=== PATIENT | male | born 1950 | race Caucasian/White ===

== ENCOUNTER 2022-12-06 08:02 | Emergency (ER) | payer MEDICARE, BC, SELFPAY ==
--- NOTE | ~2022-12-06 | CT_ITS ---
Noncontrast CT scan of the cervical spine Technique: Multiple contiguous axial [address] images of the cervical spine were obtained and rec onstructed in 2D sagittal and coronal planes on the acquisition scanner. Dose reduction technique was used on this scan by utilizing automated exposure control, adjustment of the mA and/or kV according to patient size. The dose-length product (DLP) was 456.75 mGy-cm. Clinical History: Pain Findings: No fractures or dislocations. There is mild reversal of the normal cervical lordosis. Ther e is advanced degenerative disc narrowing at C6-C7. There is moderate to advanced degenerative disc n arrowing at C5-C6. There is uncovertebral degenerative change at these levels. No prevertebral soft t issue swelling. Impression: No fracture or subluxation of the cervical spine. Mild degenerative change, as above. Reviewed, dictated and finalized at [facility]. Impression: No fracture or subluxation of the cervical spine. Mild degenerative change, as above.
--- NOTE | ~2022-12-06 | CT_ITS ---
Non-contrast Head CT History: Head injury Technique: Axial non-contrast imaging of the brain was performed. Dose reduction technique was used on this scan by utilizing automated exposure control and iterative reconstruction technique. The dose -length product (DLP) was 681.00 mGy-cm. Findings: There is no evidence of intracranial hemorrhage, mass lesion, or acute infarct. Brain par enchyma appears normal. The ventricles and subarachnoid spaces are normal in size. The calvarium ap pears normal. The visualized paranasal sinuses and mastoid air cells are clear. Impression: No significant abnormality seen. Reviewed, dictated and finalized at location . Impression: No significant abnormality seen.
[2022-12-06 08:10] VITALS: BP 141/55; PULSE 58; RESP 18; O2SAT 100
[2022-12-06 08:20] VITALS: BP 141/55; TEMP 36.8; O2SAT 100
--- NOTE | 2022-12-06 08:31 | ED.HEATRA ---
HPI - Head Injury General Chief complaint: Head Injury Stated complaint: HEAD INJURY 5 DAYS AGO Time Seen by Provider: 12/06/22 08:06 Source: patient and RN notes reviewed Mode of arrival: ambulatory Limitations: no limitations History of Present Illness HPI Narrative: This is 72 year old male with history of hyperlipidemia, chronic neck pain and heart disease who presents for evaluation of head injury. He states on he accidentally hit top of his head on corner of a cabinet. He states he leaned over and he hit cabinet when he stood back up. He states he saw stars and had bleeding from a wound. He denies LOC, nausea, vomiting. He states he has had a frontal headache and neck pain since . He has been taking tylenol and ibuprofen for his pain. He reports he has neck pain that he gets pain injections done for and it seems to have been exacerbated by this injury. He denies focal weakness, numbness or tingling. Related Data Allergies Allergy/AdvReac Type Severity Reaction Status Date / Time Sulfa (Sulfonamide Allergy Mild Unknown Verified 12/06/22 08:38 Antibiotics) Review of Systems Constitutional: Constitutional: Denies weakness Cardiovascular: Cardiovascular: Denies syncope, Denies rapid heart rate, Denies irregular heart rhythm, Denies leg edema and Denies dyspnea Respiratory: Respiratory: Denies chest congestion, Denies hemoptysis, Denies excessive phlegm production and Denies dyspnea Gastrointestinal: Gastrointestinal: Denies abdominal pain, Denies hematochezia, Denies diarrhea and Denies vomiting Genitourinary: Genitourinary: Denies hematuria, Denies dysuria, Denies penile discharge and Denies testicular pain Musculoskeletal: Musculoskeletal: Reports myalgias, Denies joint swelling, Denies loss of height and Denies muscle weakness Neurologic: Denies syncope, Reports headache(s), Denies focal weakness and Denies weakness PMFSH Past Medical History Medical History (Updated 12/06/22 @ 18:40 by Jennifer Mon MD) Heart disease Hyperlipidemia Proton pump inhibitor-responsive eosinophilic esophagitis Surgical History Surgical History (Updated 12/06/22 @ 18:40 by Jennifer Mon MD) No pertinent past surgical history Social History Social History (Updated 12/06/22 @ 08:33 by Jennifer Mon MD) Smoking status: Never smoker Exam Const: General: no acute distress and alert Nutritional Appearance: well nourished Orientation/consciousness: patient oriented x3 HENMT: Ears: external ears normal Face/Nose/Sinus: Normal external nose present Face and sinus: normal facial exam Mouth: Yes Normal oral and palatal mucosa present, Yes lip normal and Yes moist mucous membranes Throat: posterior oropharynx normal and uvula midline Other: small superfical wound right forehead at hairline Eyes: Conjunctivae: conjunctivae normal Pupils: Equal, round and reactive pupils present EOM: EOMs intact bilaterally Chest: Chest palpation & inspection: normal inspection of the chest Resp: Effort & Inspection: normal respiratory effort Auscultation: clear to auscultation bilaterally Cardio: Rate: regular rate Rhythm: regular rhythm Heart sounds: no murmurs GI: GI Palp: Yes Soft to palpation, No Tenderness to palpation present (GI), No Guarding due to palpation present (GI) and No Rigid due to palpation Auscultation: normal bowel sounds Skin: General skin exam: normal color Rashes: no rashes Wounds: wounds noted (right forehead) Neuro: General: patient oriented x3 and moves all extremities Cranial nerves: Yes CN's II-XII intact bilaterally Speech: normal speech Gait exam (Neuro): Normal gait present Extrem: General: normal to inspection Psych: Mental Status: mental status grossly normal Affect: normal affect Attitude: cooperative Course Reevaluation(s) Reevaluation #1: I have discussed with patient that CT did not show any acute fracture. I discussed discharge plan and he is
[2022-12-06 09:47] VITALS: BP 121/74; PULSE 51; RESP 18; O2SAT 96
== END 2022-12-06 09:48 | disposition home or self-care (01) ==
PROVIDERS: Emergency Provider General Practice
DX: S09.90XA Unspecified injury of head, initial encounter (principal); S16.1XXA Strain of muscle, fascia and tendon at neck level, initial encounter; E78.5 Hyperlipidemia, unspecified; W22.8XXA Striking against or struck by other objects, initial encounter
CPT/HCPCS: 70450; 72125; 99284

== ENCOUNTER 2022-12-22 09:57 | Emergency (ER) | payer MEDICARE, BC, SELFPAY ==
[2022-12-22] VITALS (31 sets, daily range): BP systolic 125–143; BP diastolic 61–81; PULSE 43–66; RESP 10–24; TEMP 36.2; O2SAT 98–100
--- NOTE | ~2022-12-22 | CT_ITS ---
Non-contrast Head CT History: Dizziness Technique: Axial non-contrast imaging of the brain was performed. Dose reduction technique was used on this scan by utilizing automated exposure control and iterative reconstruction technique. The dose -length product (DLP) was 681.00 mGy-cm. Findings: There is no evidence of intracranial hemorrhage, mass lesion, or acute infarct. Brain par enchyma appears normal. The ventricles and subarachnoid spaces are normal in size. The calvarium ap pears normal. The visualized paranasal sinuses and mastoid air cells are clear. Impression: No significant abnormality seen. Reviewed, dictated and finalized at location . Impression: No significant abnormality seen.
--- NOTE | ~2022-12-22 | CT_ITS ---
EXAMINATION: CT abdomen pelvis wo con DATE: 12/22/2022 14:00 INDICATION: Flank pain and hematuria TECHNIQUE: Computed tomography (CT) of the abdomen and pelvis was performed without intravenous contr ast. The dose-length product (DLP) was 845.31 mGy-cm. Automated exposure control and iterative recons truction technique were employed. COMPARISON: None FINDINGS: There is mild atelectasis of the visualized lung bases. Cardiomegaly is noted. There is jennifer cified coronary artery atherosclerosis with coronary artery stenting. A small sliding hiatal hernia i s present. The liver, spleen, gallbladder, and adrenal glands are normal. There is fatty replacement of much of the pancreas. Peripelvic cysts are noted in the kidneys. There is a punctate nonobstructin g stone of the right kidney upper pole. A 2 mm nonobstructing stone is present in the left kidney. Th ere is a 2.5 cm cyst of the left kidney. No stones are identified in the ureters or bladder. No hydro nephrosis or hydroureter. The appendix is normal. No pathologically enlarged abdominal or pelvic lymp h nodes are identified. No free intraperitoneal gas or evidence of bowel obstruction. There is mild l umbar spondylosis. IMPRESSION: 1. Small, nonobstructing stones of the kidneys. Reviewed, dictated and finalized at location L.
--- NOTE | ~2022-12-22 | XR_ITS ---
Clinical Indication: Dizziness AP and lateral views of the chest: Comparison: None Findings: The lungs are clear, without evidence of focal consolidation or pleural effusion. Cardiome diastinal silhouette is within normal limits. Bones and soft tissues are unremarkable. Impression: Normal chest. Reviewed, dictated and finalized at location . Impression: Normal chest.
--- NOTE | 2022-12-22 10:07 | ECG_ITS ---
Measurements Intervals [place] Rate: 50 P: 73 VT: 196 QRS: -24 QRSD: 150 T: 15 QT: 432 QTc: 395 Interpretive Statements SINUS BRADYCARDIA RIGHT BUNDLE BRANCH BLOCK BASELINE ARTIFACT- I, II, AVR, AVL, AVF ABNORMAL ECG NO PREVIOUS ECG AVAILABLE FOR COMPARISON Electronically Signed On 12-22-2022 11:57:38 CDT by Sánchez Bhatt D.O.
[2022-12-22] MEDS: MECLIZINE HCL 25 MG TABLET PO (11:13)
[2022-12-22] MEDS: ONDANSETRON INJ 4 MG/2 ML VIAL IV PUSH (11:24)
--- NOTE | 2022-12-22 11:26 | ED.DIZZY ---
HPI - Dizziness General Chief Complaint: Dizziness Stated Complaint: dizziness, h/a, off balance, nausea, woke w/ sx's Time Seen by Provider: 12/22/22 10:37 Source: patient Mode of arrival: wheelchair Limitations: no limitations History of Present Illness HPI Narrative: This is a 72-year-old male that presents to the emergency department for dizziness noted upon awakening. Reports when he woke up and tried to sit up he felt very lightheaded. This sensation has remained, patient also feels off balance when he walks. He does report a mild headache. Reports a head injury about 2 weeks ago for which she was evaluated here with a negative CT scan. He has been experiencing intermittent headaches since. Denies visual changes, vomiting, or focal numbness or weakness. Related Data Allergies Allergy/AdvReac Type Severity Reaction Status Date / Time Sulfa (Sulfonamide Allergy Mild Unknown Verified 12/22/22 10:44 Antibiotics) Review of Systems Review of Systems: CONSTITUTIONAL: Denies fever EYES: Denies visual changes CARDIOVASCULAR: Denies chest pain, or edema. RESPIRATORY: Denies dyspnea. GASTROINTESTINAL: Denies vomiting NEUROLOGIC: Reports headache. Denies numbness, or weakness. All systems reviewed & are unremarkable except as noted in HPI and below PMFSH Past Medical History Medical History (Updated 12/22/22 @ 14:34 by Natividad Varma PA-C) Heart disease Hyperlipidemia Proton pump inhibitor-responsive eosinophilic esophagitis Surgical History Surgical History (Updated 12/22/22 @ 11:29 by Natividad Varma PA-C) History of coronary artery stent placement Social History Social History (Updated 12/06/22 @ 08:33 by Jennifer Mon MD) Smoking status: Never smoker Exam Narrative: GENERAL: Well-appearing, well-nourished, and in no acute distress. HEAD: Normocephalic, atraumatic. EYES: PERRLA and EOMI. ENT: Nares clear, no rhinorrhea or epistaxis. Mucous membranes moist. Oropharynx without tonsillar hypertrophy exudate or other lesions. Bilateral TMs pearly elmore non-bulging NECK: Supple. No adenopathy or masses. CHEST: Clear to auscultation. No respiratory distress. No wheezes rales or rhonchi HEART: Regular rate and rhythm. No murmur heard. Normal peripheral pulses. EXTREMITIES: Normal range of motion. No edema. Strength equal in bilateral upper and lower extremities (5/5) SKIN: Warm, dry, no rash. NEURO: No focal deficits. Alert and oriented x3. Cranial nerves II through XII grossly intact. Normal [id number]. Normal gait PSYCH: Normal mood and affect Course Course Emergency Course: Patient and family updated on work-up and agree with plan of care Vital Signs Vital signs: Vital Signs Pulse Rate 56 L 12/22/22 10:11 Respiratory Rate 12 12/22/22 10:11 Pulse Oximetry 99 12/22/22 10:11 Temperature 97.2 F L 12/22/22 11:02 Pulse Rate 43 L 12/22/22 13:01 Respiratory Rate 11 L 12/22/22 13:01 Blood Pressure 140/68 12/22/22 13:45 Pulse Oximetry 100 12/22/22 13:46 Oxygen Delivery Room Air 12/22/22 11:02 MDM - Dizziness MDM Narrative Medical decision making narrative: Patient presents to the emergency department for episode of lightheadedness and headache today. Patient did report a recent head injury. Reports he has had some intermittent headaches since. He is neurovascularly intact today. He reports relief after IV fluids, Tylenol and meclizine. Noted to be in sinus bradycardia, but patient reports this is chronic for him. It does appear this is true looking at his previous vital signs. CBC and metabolic panel without concerning findings. UA with some evidence of dehydration. Also greater than 100 red blood cells. No evidence of infection. 4-6 white blood cells likely contamination. With moderate squamous epithelial cells noted. Patient was endorsing he had been having some intermittent flank pain. CT scan of abdomen and pelvis was obtained.
[2022-12-22 11:43] LABS: Basophils Percent Auto 0.4 % (0.2-1.2); Eosinophils Percent Auto 0.6 % (0-4.4); Hematocrit 44.9 % (42.0-52.0); Immature Granulocyte Absolute 0.03 K/mm3 (0.00-0.031); Immature Granulocyte Percent A 0.4 % (0-0.5); Lymphocytes Absolute Auto 1.89 K/mm3 (0.9-3.2); Lymphocytes Percent Auto 27.1 % (18.3-44.2); Mean Corpuscular HGB Conc 33.4 g/dl (32-36); Mean Corpuscular Hemoglobin 30.9 pg (26-34); Mean Corpuscular Volume 92.4 fl (80-100); Mean Platelet Volume 10.1 fl (7.4-10.4); Monocytes Absolute Auto 0.3 K/mm3 (0.1-0.6); Monocytes Percent Auto 4.9 % (2.6-8.5); Neutrophils Absolute Auto 4.6 K/mm3 (1.3-6.7); Neutrophils Percent Auto 66.6 % (45.5-73.1); Platelet Count Result 188 k/mm3 (150-375); Red Blood Count 4.86 M/mm3 (4.6-6.20); Red Cell Distribution Width 12.7 % (11.5-14.5)
[2022-12-22] MEDS: SODIUM CHLORIDE 0.9% IV 500 ML 999 ML IV CONT ×2 (11:53→13:50)
[2022-12-22] MEDS: ACETAMINOPHEN 500 MG TABLET 1000 MG PO (11:54)
[2022-12-22 12:04] LABS: Alanine Aminotransferase 28 U/L (6-50); Albumin Level 4.3 g/dL (3.5-5.1); Alkaline Phosphatase 63 U/L (38-126); Anion Gap 5 mmol/L (8-16); Aspartate Amino Transferase 29 U/L (17-59); Bilirubin,Total 1.1 mg/dL (0.2-1.3); Blood Urea Nitrogen 19 mg/dL (9-20); Carbon Dioxide 28 mmol/L (22-30); Chloride 106 mmol/L (98-107); Creatine Kinase 131 U/L (55-170); Estimated CRCL calculation 81 ml/min; Estimated Glomerular Filt Rate > 60; Glucose 122 mg/dL (65-110); Potassium 4.1 mmol/L (3.4-5.0); Sodium 139 mmol/L (137-145)
--- NOTE | 2022-12-22 12:30 | PC.NURSE ---
Patient report received from SYDNI Vail. All questions answered and care of patient assumed.
[2022-12-22 12:39] LABS: Appearance Urine Cloudy (Clear); Bilirubin Urine 1+ (Negative); Blood Urine 2+ (Negative); Color Urine Dark Yellow (Yellow); Glucose Urine UA Negative (Negative); Ketones Urine Trace mg/dL (Negative); Leukocyte Esterase Ur Trace LEU/UL (Negative); Nitrate Urine Negative (Negative); Protein Urine Trace mg/dL (Negative); Specific Grav Ur 1.031 (1.001-1.035); pH Urine 5.5 (5.0-9.0)
[2022-12-22 13:04] LABS: Add Urine Microscopic? YES
[2022-12-22 13:06] LABS: Squamous Epithelial Cell Urine Moderate /hpf (Few)
[2022-12-22 13:07] LABS: RBC Urine >100 /hpf (0-2)
[2022-12-22 13:08] LABS: Calcium Oxalate Crystals Urine Present /hpf
[2022-12-22 13:09] LABS: Mucus Urine Few /lpf
--- NOTE | 2022-12-22 13:57 | PC.NURSE ---
Patient off unit to CT.
== END 2022-12-22 14:46 | disposition home or self-care (01) ==
PROVIDERS: Emergency Provider Physician Assistant
DX: R42 Dizziness and giddiness (principal); E86.0 Dehydration; R31.9 Hematuria, unspecified; E78.5 Hyperlipidemia, unspecified; I51.9 Heart disease, unspecified; K20.0 Eosinophilic esophagitis; Z95.5 Presence of coronary angioplasty implant and graft; R00.1 Bradycardia, unspecified; I45.10 Unspecified right bundle-branch block; N20.0 Calculus of kidney
CPT/HCPCS: 36415; 70450; 71046; 74176; 80053; 81001; 82550; 85025; 87086; 87088; 93005; 96361; 96374; 99284; A9270; J2405; J7040

== ENCOUNTER 2023-02-17 08:13 | Emergency (ER) | payer MEDICARE, BC, SELFPAY ==
[2023-02-17 08:27] VITALS: BP 135/70; PULSE 53; RESP 16; TEMP 36.6; O2SAT 99
--- NOTE | 2023-02-17 08:28 | ED.SKABFB ---
HPI - Skin/Abscess/Foreign Bdy General Chief complaint: Skin/Abscess/Foreign Body Stated complaint: injury left miranda Time Seen by Provider: 02/17/23 08:28 Source: patient Mode of arrival: ambulatory Limitations: no limitations History of Present Illness HPI narrative: 72-year-old male presents with abrasion to left miranda. Reports yesterday he dropped a guarded chills all and hit his left miranda. With pneumonia reports side, soap and water. Arrived with Band-Aid in place. Patient requesting a tetanus vaccine. Patient states that he had been using the shovel and his garden and is also old and georgette. Unsure of his last tetanus. All systems reviewed and negative except as noted above. Related Data Home Medications Medication Instructions Recorded Confirmed atorvastatin 40 mg tablet mg 02/17/23 famotidine 40 mg tablet mg 02/17/23 02/17/23 nitroglycerin 0.4 mg sublingual mg 02/17/23 tablet pantoprazole 40 mg tablet,delayed mg PO 02/17/23 release trazodone 50 mg tablet mg 02/17/23 Allergies Allergy/AdvReac Type Severity Reaction Status Date / Time Sulfa (Sulfonamide Allergy Mild Unknown Verified 02/17/23 08:29 Antibiotics) Review of Systems Review of Systems: CONSTITUTIONAL: Denies fever, chills, or sweats. EYES: Denies visual changes, redness, or discharge. ENT: Denies rhinorrhea, congestion, sore throat, or otalgia. CARDIOVASCULAR: Denies chest pain, palpitations, or edema. RESPIRATORY: Denies cough or dyspnea. GASTROINTESTINAL: Denies abdominal pain, nausea, vomiting, or diarrhea. GENITOURINARY: Denies dysuria or hematuria. SKIN: Denies rash or itching. Reports abrasion to left miranda. MUSCULOSKELETAL: Denies back pain, joint pain, or myalgia. NEUROLOGIC: Denies headache, numbness, or weakness. PSYCHIATRIC: Denies anxiety or depression. All other systems reviewed are negative, except as documented in HPI. [facility] Past Medical History Medical History (Updated 02/17/23 @ 08:38 by Leena Hoskins NP) Heart disease Hyperlipidemia Proton pump inhibitor-responsive eosinophilic esophagitis Surgical History Surgical History (Updated 12/22/22 @ 11:29 by Natividad Varma PA-C) History of coronary artery stent placement Social History Social History (Updated 12/06/22 @ 08:33 by Jennifer Mon MD) Smoking status: Never smoker Comments At time of signature, agree with nursing past medical, surgical, social and family history. There is no relevant family history pertinent to the presenting complaint. Exam Narrative: GENERAL: This is a well-nourished, well-developed patient, in no apparent distress. HEAD: normocephalic, atraumatic. EYES: PERRL. Sclera clear/white. Vision is grossly intact. EARS: External ears normal NOSE: External nose normal NECK: Neck supple, non-tender without lymphadenopathy, masses or thyromegaly. CARDIOVASCULAR: Regular rate and rhythm without murmurs, gallops, or rubs. RESPIRATORY: Clear to auscultation. Breath sounds equal bilaterally. No wheezes, rales, or rhonchi. SKIN: warm, Dry, with no suspicious lesions or rash, good texture and turgor. Small abrasion to anterior aspect of left lower extremity. Approximately 1 cm diameter. No active bleeding. No signs of infection. NEURO: awake, alert, and oriented to person, place and time. There were no obvious focal neurologic abnormalities. EXTREMITIES: No joint tenderness, effusion, or edema noted. Course Course Level of Care: Express Care Visit Vital Signs Vital signs: Vital Signs Temperature 36.6 C 02/17/23 08:27 Pulse Rate 53 L 02/17/23 08:27 Respiratory Rate 16 02/17/23 08:27 Blood Pressure 135/70 02/17/23 08:27 Pulse Oximetry 99 02/17/23 08:27 Oxygen Delivery Room Air 02/17/23 08:27 Temperature 36.6 C 02/17/23 08:30 Pulse Rate 53 L 02/17/23 08:30 Respiratory Rate 16 02/17/23 08:30 Blood Pressure 135/70 02/17/23 08:30 Pulse Oximetry 99 02/17/23
[2023-02-17 08:30] VITALS: BP 135/70; PULSE 53; RESP 16; TEMP 36.6; O2SAT 99
[2023-02-17] MEDS: TETANUS/DIPHTHERIA TOXOIDS ADSORB 0.5 ML VIAL (*BKC) IM (08:44)
== END 2023-02-17 08:55 | disposition home or self-care (01) ==
PROVIDERS: Emergency Provider Nurse Practitioner Family
DX: S80.812A Abrasion, left lower leg, initial encounter (principal); W20.8XXA Other cause of strike by thrown, projected or falling object, initial encounter; Z23 Encounter for immunization; E78.5 Hyperlipidemia, unspecified; I25.10 Atherosclerotic heart disease of native coronary artery without angina pectoris; Z95.5 Presence of coronary angioplasty implant and graft
CPT/HCPCS: 90471; 90714; 99212; G0463

== ENCOUNTER 2024-03-05 13:45 | Emergency (ER) | payer MEDICARE, BC, SELFPAY ==
--- NOTE | ~2024-03-05 | US_ITS ---
EXAMINATION: US venous doppler [facility] DATE: 03/05/2024 14:50 INDICATION: Left lower limb pain and swelling. TECHNIQUE: Grayscale ultrasound images without and with compression and Doppler ultrasound images of the left lower extremity veins were obtained. COMPARISON: None. FINDINGS: The visualized portions of left common femoral vein, profunda (deep) femoral vein, femoral vein, popl iteal vein, peroneal veins, and posterior tibial veins are patent. IMPRESSION: 1. No deep venous thrombosis. Reviewed, dictated and finalized at location A.
[2024-03-05 13:54] VITALS: BP 158/63; PULSE 56; RESP 16; TEMP 36.5; O2SAT 98
--- NOTE | 2024-03-05 15:20 | ED.LOWEXIN ---
HPI - Extremity Injury (Lower) General Chief Complaint: Extremity Injury, Lower Stated Complaint: left calf pain Time Seen by Provider: 03/05/24 14:16 Source: patient Mode of arrival: ambulatory Limitations: no limitations History of Present Illness HPI Narrative: Patient is a 73-year-old male who presents the ED with report of left calf pain. Patient reports pain began last night and was persistent into today. He has noticed it mostly with palpation or resting his leg against an object. He denies pain with ambulation. Has been taking ibuprofen for the pain with some improvement. He is concerned for a blood clot. Denies previous history of DVT. He has recently traveled to and from [place] via driving. He does note that he stop several times to stretch and ambulate. He denies significant swelling of left lower extremity. Denies redness/warmth, wounds, fevers, CP, SOB. He does also report history of previous vein surgeries in his left leg. Related Data Home Medications Medication Instructions Recorded Confirmed atorvastatin 40 mg tablet 40 mg PO DAILY 02/17/23 02/17/23 famotidine 40 mg tablet 40 mg PO DAILY 02/17/23 02/17/23 nitroglycerin 0.4 mg sublingual See Rx Instructions .Route .COMPLEX 02/17/23 02/17/23 tablet pantoprazole 40 mg tablet,delayed 40 mg PO DAILY 02/17/23 02/17/23 release trazodone 50 mg tablet 50 mg PO DAILY 02/17/23 02/17/23 Allergies Allergy/AdvReac Type Severity Reaction Status Date / Time Sulfa (Sulfonamide Allergy Mild Unknown Verified 03/05/24 14:06 Antibiotics) Review of Systems Review of Systems: All systems reviewed & are unremarkable except as noted in HPI. All systems reviewed & are unremarkable except as noted in HPI and below PMFSH Past Medical History Medical History Heart disease Hyperlipidemia Proton pump inhibitor-responsive eosinophilic esophagitis Surgical History Surgical History History of coronary artery stent placement Social History Social History Smoking status: Never smoker Exam Narrative: GENERAL: Well appearing, well-nourished, non-toxic, in no acute distress. HEAD: Normocephalic, atraumatic. RESPIRATORY: Airway patent, respirations nonlabored. CARDIOVASCULAR: Regular rate and rhythm. Peripheral pulses intact and easily palpable. MUSCULOSKELETAL: Moves all extremities. No gross deformities. No significant swelling of left lower extremity compared to right. Small tender area to posterior mid calf with small area of induration palpated. No erythema, warmth, fluctuance. No wounds. Sensation intact throughout extremity. SKIN: Warm, dry, normal color. NEURO: A&O X3. Speech clear. Cranial nerves II-XII grossly intact. Steady gait. No ataxic movements. PSYCHIATRIC: Appropriate mood and affect. Normal interaction. Course Vital Signs Vital signs: Vital Signs Temperature 97.7 F 03/05/24 13:54 Pulse Rate 56 L 03/05/24 13:54 Respiratory Rate 16 03/05/24 13:54 Blood Pressure 158/63 H 03/05/24 13:54 Pulse Oximetry 98 03/05/24 13:54 Oxygen Delivery Room Air 03/05/24 13:54 Temperature 97.7 F 03/05/24 13:54 Pulse Rate 58 L 03/05/24 15:30 Respiratory Rate 16 03/05/24 15:30 Blood Pressure 136/62 03/05/24 15:30 Pulse Oximetry 100 03/05/24 15:30 Oxygen Delivery Room Air 03/05/24 13:54 MDM - Extremity Injury (Lower) MDM Narrative Medical decision making narrative: Patient presented to ED with 1 day history of pain to L calf, concerned for DVT, recent travel. Vital signs are stable. Patient denying any chest pain or shortness of breath. Exam is fairly unremarkable. No significant swelling throughout left lower extremity. No skin changes throughout calf. No evidence of cellulitis. Good peripheral pulses.
[2024-03-05] MEDS: IBUPROFEN 600 MG TABLET PO (15:28)
[2024-03-05 15:30] VITALS: BP 136/62; PULSE 58; RESP 16; O2SAT 100
== END 2024-03-05 15:35 | disposition home or self-care (01) ==
PROVIDERS: Emergency Provider Physician Assistant
DX: M79.662 Pain in left lower leg (principal); E78.5 Hyperlipidemia, unspecified; I51.9 Heart disease, unspecified
CPT/HCPCS: 93971; 99284; A9270